=== PATIENT | female | born 1985 | race Caucasian/White ===

== ENCOUNTER → 2018-08-28 | Outpatient (CLI) | payer OTHER ==
--- NOTE | 2018-08-28 17:20 | MR ---
EXAMINATION TYPE: MR cspine/lspine wo con DATE OF EXAM: 08/28/2018 COMPARISON: None HISTORY: Neck/low back pain into legs, migraines TECHNIQUE: Multiplanar, multisequence imaging of the lumbar and cervical spine is performed without I V contrast. FINDINGS: Cervical spine: Cervical vertebral bodies show preserved height, alignment, and bone marrow signal. D isc spaces are maintained. Cervical cord signal is normal. There is no significant foraminal encroach ment, disc herniation, or spinal stenosis. There is a mild spinal curvature present. IMPRESSION: Mild spinal curvature may be positional Lumbar spine: Sagittal images of the lumbar spine show vertebral body heights and alignment to appear satisfactory. The intervertebral discs demonstrate normal heights and hydration. The conus medullar is is normal in position and signal. The bone marrow signal intensity is within normal limits. Axial images show no focal disc disease at any lumbar level. There is no spinal canal stenosis, neur al foraminal narrowing, or evidence of nerve root compromise. Facet arthropathy is present at L5-S1, L4-5 and L3-4. IMPRESSION: Negative MRI of the lumbar spine or disc herniation. Mild facet arthropathy.
== END | disposition home or self-care (01) ==
LOC: RADMRIMAIN 15:16
PROVIDERS: ATTEND Pain Medicine Interventional Pain Medicine
DX: M46.96 Unspecified inflammatory spondylopathy, lumbar region (principal); M46.97 Unspecified inflammatory spondylopathy, lumbosacral region; M43.8X2 Other specified deforming dorsopathies, cervical region
CPT/HCPCS: 72141; 72148

== ENCOUNTER 2019-11-02 22:02 | Emergency (ER) | payer OTHER ==
[2019-11-02 23:00] LABS: Basophils % (A) 1 %; Eosinophils # (A) 0.1 k/uL (0-0.7); Eosinophils % (A) 2 %; HGB 13.4 gm/dL (11.4-16.0); Lymphocytes % (A) 53 %; MCH 31.4 pg (25.0-35.0); MCHC 34.3 g/dL (31.0-37.0); MCV 91.4 fL (80.0-100.0); Mean Platelet Volume 8.7; Monocytes # (A) 0.3 k/uL (0-1.0); Monocytes % (A) 6 %; Neutrophils % (A) 36 %; Platelet Count 282 k/uL (150-450); RBC 4.27 m/uL (3.80-5.40); RDW 12.5 % (11.5-15.5); WBC 5.6 k/uL (3.8-10.6)
[2019-11-02 23:10] LABS: ALT 18 U/L (4-34); AST 20 U/L (14-36); African American GFR (CKD) >90 (>60 ml/min/1.73 sqM); Albumin 4.6 g/dL (3.5-5.0); Alkaline Phosphatase 49 U/L (38-126); Anion Gap 10 mmol/L; Blood Urea Nitrogen 12 mg/dL (7-17); Calcium 9.9 mg/dL (8.4-10.2); Carbon Dioxide 23 mmol/L (22-30); Chloride 109 mmol/L (98-107); Glucose 84 mg/dL (74-99); Magnesium 1.8 mg/dL (1.6-2.3); Non-African American GFR(CKD) >90 (>60 ml/min/1.73 sqM); Sodium 142 mmol/L (137-145); Total Bilirubin 0.5 mg/dL (0.2-1.3); Total Protein 7.3 g/dL (6.3-8.2)
[2019-11-02 23:16] LABS: Partial Thromboplastin Time 22.1 sec (22.0-30.0)
--- NOTE | 2019-11-02 23:23 | XR ---
EXAMINATION TYPE: XR chest 2V DATE OF EXAM: 11/02/2019 COMPARISON: NONE HISTORY: Chest pain TECHNIQUE: FINDINGS: Heart and mediastinum are normal. Lungs are clear. Diaphragm is normal. There are chest karey ds. There are sternal wires. IMPRESSION: Normal chest.
[2019-11-02] MEDS ORDERED: POTASSIUM CHLORIDE ER 20 MEQ TAB.ER PO STA (23:37)
[2019-11-02] MEDS ORDERED: KETOROLAC 30 MG/ML 1 ML VIAL IVP STA (23:38)
[2019-11-02] MEDS ORDERED: METOCLOPRAMIDE 5 MG/ML 2 ML VIAL IVP STA (23:38)
[2019-11-02] MEDS ORDERED: diphenhydrAMINE 50 MG/ML 1 ML VIAL IVP STA (23:38)
[2019-11-02 23:53] VITALS: RESP 18
--- NOTE | 2019-11-03 01:02 | ED ---
General Adult HPI - General Chief complaint: Chest Pain Stated complaint: Abnormal Labs,Chest Pains Time Seen by Provider: 11/02/19 22:17 Source: patient Mode of arrival: ambulatory Limitations: no limitations - History of Present Illness Initial comments: 34-year-old female patient presents to the emergency department today for evaluation of chest pain, shortness of breath, and abnormal labs. The patient states that she establish with a new primary care physician last week. States she had labs performed and was called today and told to present to the emergency department due to decreased potassium at 2.9. Patient states for the last few months she has been experiencing intermittent chest pains, neck pain, migraines. Patient states she has a history of migraine headache and does take sumatriptan for this but they have been increasing in frequency. States that she is having blurred vision and light sensitivity with her headaches. Denies any nausea or vomiting. She denies any cough, congestion, fever, or chills. Denies numbness, tingling, weakness to her extremities. Denies abdominal pain. 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 She states she has leaky valves but is unsure which ones. 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 Patient denies any recent rash, diarrhea, constipation, back pain, dizziness, weakness, hematuria, dysuria, urinary urgency, urinary frequency, or any other complaints. - Related Data Home Medications Medication Instructions Recorded Confirmed Cephalexin [Keflex] 500 mg PO Q6H 11/02/19 11/02/19 Dextroamphetamine/Amphetamine 20 mg PO BID 11/02/19 11/02/19 [Adderall] Ibuprofen 800 mg PO TID PRN 11/02/19 11/02/19 Lisinopril-Hctz 10-12.5 mg 1 tab PO DAILY 11/02/19 11/02/19 [Zestoretic 10-12.5] amLODIPine [Norvasc] 5 mg PO HS 11/02/19 11/02/19 busPIRone HCL [Buspar] 7.5 mg PO TID 11/02/19 11/02/19 hydrOXYzine pamoate [Vistaril] 25 mg PO Q8H PRN 11/02/19 11/02/19 medroxyPROGESTERone [Depo-Provera] 150 mg IM Q90D 11/02/19 11/02/19 tiZANidine HCL 2 mg PO Q8H PRN 11/02/19 11/02/19 Previous Rx's Medication Instructions Recorded Potassium Chloride ER [K-Dur 20] 20 meq PO DAILY #3 tab 11/03/19 Allergies Allergy/AdvReac Type Severity Reaction Status Date / Time pregabalin [From Lyrica] Allergy Hallucinati Verified 11/02/19 23:18 ons Review of Systems ROS Statement: Those systems with pertinent positive or pertinent negative responses have been documented in the HPI. ROS Other: All systems not noted in ROS Statement are negative. Past Medical History Past Medical History: Asthma, Coronary Artery Disease (CAD), Fibromyalgia, Hypertension, Rheumatoid Arthritis (RA) Additional Past Medical History / Comment(s): lupus, scoliosis History of Any Multi-Drug Resistant Organisms: MRSA Date of last positivie culture/infection: 2011 MDRO Source:: hand Additional Past Surgical History / Comment(s): heart tumor removed Past Psychological History: No Psychological Hx Reported Smoking Status: Current every day smoker Past Alcohol Use History: None Reported Past Drug Use History: None Reported General Exam Limitations: no limitations General appearance: alert, in no apparent distress, other (This is a well- developed, well-nourished adult female patient in no acute distress. Vital signs upon presentation are temperature 98.3F, pulse 110, respirations 20, blood pressure 128/94, pulse ox 100% on room air) Eye exam: Present: normal appearance, PERRL, EOMI. Absent: scleral icterus, conjunctival injection, periorbital swelling ENT exam: Present: normal exam, normal oropharynx, mucous membranes moist Respiratory exam: Present: normal lung sounds bilaterally. Absent: respiratory distress, wheezes, rales, rhonchi, stridor Cardiovascular Exam: Present: regular rate, normal rhythm, normal heart sounds. Absent: systolic murmur, diastolic murmur, rubs, gallop, clicks GI/Abdominal exam: Present: soft, normal bowel sounds. Absent: distended, tenderness, guarding, rebound, rigid Neurological exam: Present: alert, oriented X3, CN II-XII intact, other (Strength in all 4 extremities is 5/5.) Psychiatric exam: Present: normal affect, normal mood Skin exam: Present: warm, dry, intact, normal color. Absent: rash Course Vital Signs 11/02/19 11/02/19 11/02/19 22:11 22:37 23:53 Temperature 98.3 F Pulse Rate 110 H 90 Pulse Rate [ 108 H Bilateral] Respiratory 20 18 Rate Blood Pressure 128/94 142/92 O2 Sat by Pulse 100 97 Oximetry 11/03/19 01:15 Temperature 98.4 F Pulse Rate 88 Pulse Rate [ Bilateral] Respiratory 18 Rate Blood Pressure 132/92 O2 Sat by Pulse 97 Oximetry EKG Findings - EKG Comments: EKG Findings:: EKG obtained at 2227 shows normal sinus rhythm with a prolonged QT interval. Ventricular rate is 98, GA interval 138, QRS duration 82, QT 376, QTC 480. No evidence of ST elevation or depression. Medical Decision Making - Medical Decision Making 34 year-old female patient presents to the emergency department for evaluation of abnormal labs, migraine, chest pain, and shortness of breath. Labs reviewed and are unremarkable. EKG showed sinus rhythm with prolonged QT interval. Chest x-ray shows no acute cardiopulmonary process. Upon reevaluation patient is feeling better. She'll be discharged to follow-up with her primary care physician for recheck in 1-2 days. She is given by mouth potassium for replacement. She is given prescription for the next 3 days. Return parameters discussed in detail. She verbalizes understanding and agrees with this plan. - Lab Data Result diagrams: 11/02/19 22:28 11/02/19 22:28 Lab Results 11/02/19 11/02/19 11/02/19 Range/Units 22:28 22:28 22:28 WBC 5.6 (3.8-10.6) k/uL RBC 4.27 (3.80-5.40) m/uL Hgb 13.4 (11.4-16.0) gm/dL Hct 39.0 (34.0-46.0) % MCV 91.4 (80.0-100.0) fL MCH 31.4 (25.0-35.0) pg MCHC 34.3 (31.0-37.0) g/dL RDW 12.5 (11.5-15.5) % Plt Count 282 (150-450) k/uL Neutrophils % 36 % Lymphocytes % 53 % Monocytes % 6 % Eosinophils % 2 % Basophils % 1 % Neutrophils # 2.0 (1.3-7.7) k/uL Lymphocytes # 3.0 (1.0-4.8) k/uL Monocytes # 0.3 (0-1.0) k/uL Eosinophils # 0.1 (0-0.7) k/uL Basophils # 0.0 (0-0.2) k/uL PT 10.0 (9.0-12.0) sec INR 1.0 (<1.2) APTT 22.1 (22.0-30.0) sec Sodium 142 (137-145) mmol/L Potassium 3.0 L (3.5-5.1) mmol/L Chloride 109 H (98-107) mmol/L Carbon Dioxide 23 (22-30) mmol/L Anion Gap 10 mmol/L BUN 12 (7-17) mg/dL Creatinine 0.63 (0.52-1.04) mg/dL Est GFR (CKD-EPI)AfAm >90 (>60 ml/min/1.73 sqM) Est GFR (CKD-EPI)NonAf >90 (>60 ml/min/1.73 sqM) Glucose 84 (74-99) mg/dL Calcium 9.9 (8.4-10.2) mg/dL Magnesium 1.8 (1.6-2.3) mg/dL Total Bilirubin 0.5 (0.2-1.3) mg/dL AST 20 (14-36) U/L ALT 18 (4-34) U/L Alkaline Phosphatase 49 (38-126) U/L Troponin I (0.000-0.034) ng/mL Total Protein 7.3 (6.3-8.2) g/dL Albumin 4.6 (3.5-5.0) g/dL 11/02/19 Range/Units 22:28 WBC (3.8-10.6) k/uL RBC (3.80-5.40) m/uL Hgb (11.4-16.0) gm/dL Hct (34.0-46.0) % MCV (80.0-100.0) fL MCH (25.0-35.0) pg MCHC (31.0-37.0) g/dL RDW (11.5-15.5) % Plt Count (150-450) k/uL Neutrophils % % Lymphocytes % % Monocytes % % Eosinophils % % Basophils % % Neutrophils # (1.3-7.7) k/uL Lymphocytes # (1.0-4.8) k/uL Monocytes # (0-1.0) k/uL Eosinophils # (0-0.7) k/uL Basophils # (0-0.2) k/uL PT (9.0-12.0) sec INR (<1.2) APTT (22.0-30.0) sec Sodium (137-145) mmol/L Potassium (3.5-5.1) mmol/L Chloride (98-107) mmol/L Carbon Dioxide (22-30) mmol/L Anion Gap mmol/L BUN (7-17) mg/dL Creatinine (0.52-1.04) mg/dL Est GFR (CKD-EPI)AfAm (>60 ml/min/1.73 sqM) Est GFR (CKD-EPI)NonAf (>60 ml/min/1.73 sqM) Glucose (74-99) mg/dL Calcium (8.4-10.2) mg/dL Magnesium (1.6-2.3) mg/dL Total Bilirubin (0.2-1.3) mg/dL AST (14-36) U/L ALT (4-34) U/L Alkaline Phosphatase (38-126) U/L Troponin I <0.012 (0.000-0.034) ng/mL Total Protein (6.3-8.2) g/dL Albumin (3.5-5.0) g/dL - Radiology Data Radiology results: report reviewed, image reviewed Two-view x-ray of the chest is obtained. Report was reviewed in its entirety. Impression by Dr. Goldberg shows normal chest. Disposition Clinical Impression: Chest pain, Hypokalemia Disposition: HOME SELF-CARE Condition: Good Instructions (If sedation given, give patient instructions): Chest Pain (ED), Hypokalemia (ED) Additional Instructions: Take medication as directed. Follow-up with the primary care physician for recheck in 1-2 days. Return to the emergency department immediately for any new, worsening, or concerning symptoms. Prescriptions: Potassium Chloride ER [K-Dur 20] 20 meq PO DAILY #3 tab Is patient prescribed a controlled substance at d/c from ED?: No Referrals: Yamil Barboza MD [Primary Care Provider] - 1-2 days Time of Disposition: 01:02
[2019-11-03 01:17] VITALS: BP 132/92; PULSE 88; TEMP 98.4
== END 2019-11-03 01:15 | disposition home or self-care (01) ==
LOC: EC 22:02 → SUPCPDRO 22:02 → EC 11-03 01:15
DX: R07.9 Chest pain, unspecified (principal); E87.6 Hypokalemia; I25.10 Atherosclerotic heart disease of native coronary artery without angina pectoris; G43.909 Migraine, unspecified, not intractable, without status migrainosus; M06.9 Rheumatoid arthritis, unspecified; M79.7 Fibromyalgia; R06.02 Shortness of breath; I10 Essential (primary) hypertension; F17.200 Nicotine dependence, unspecified, uncomplicated; Z79.899 Other long term (current) drug therapy; Z88.8 Allergy status to other drugs, medicaments and biological substances; Z86.14 Personal history of Methicillin resistant Staphylococcus aureus infection
CPT/HCPCS: 36415; 93005; 80053; 83735; 84484; 85025; 85610; 85730; 71046; 99285; 96374; 96375; J1200; J2765; J1885